=== PATIENT | female | born 1990 | race Caucasian/White ===

== ENCOUNTER 2020-12-12 16:40 | Emergency (ER) | payer OTHER ==
[~2020-12-12] VITALS: Ht 157.5 cm; Wt 52.3 kg
[2020-12-12 18:06] LABS: BASO # 0.02 (0.02-0.10); EOS # 0.09 (0.04-0.40); EOS % 1.7 % (1.0-5.0); HEMATOCRIT 38.6 % (37.0-47.0); HEMOGLOBIN 12.2 g/dL (12.5-16.0); LYMPH# 2.09 (1.50-4.00); MEAN CELL VOLUME 85 fl (78-100); MEAN CORPUSCULAR HEMOGLOBIN 27 pg (27-31); MEAN CORPUSCULAR HGB CONC 32 g/dL (33-37); MEAN PLATELET VOLUME 9.4 fl (7.4-10.4); NEU # 2.83 (1.40-6.50); PLATELET COUNT 290 K/mm3 (130-400); RED BLOOD COUNT 4.54 M/mm3 (4.10-5.30); RED CELL DISTRIBUTION WIDTH 15.8 % (11.5-14.5); WHITE BLOOD COUNT 5.3 K/mm3 (4.8-10.8)
[2020-12-12 18:09] LABS: ALBUMIN 4.1 g/dL (3.5-5.0)
[2020-12-12 18:10] LABS: POTASSIUM 3.7 mmol/L (3.5-5.1); SODIUM 139 mmol/L (136-145)
[2020-12-12 18:11] LABS: CALCIUM 9.5 mg/dL (8.3-10.5)
[2020-12-12 18:12] LABS: GLUCOSE 90 mg/dL (65-105); TOTAL PROTEIN 7.5 g/dL (6.4-8.3)
[2020-12-12 18:13] LABS: CARBON DIOXIDE 23 mmol/L (22-29)
[2020-12-12 18:14] LABS: TOTAL BILIRUBIN 0.5 mg/dL (0.2-1.2)
[2020-12-12 18:17] LABS: AST-SGOT 21 U/L (5-34)
[2020-12-12 18:19] LABS: ALT/SGPT 17 U/L (0-55); LIPASE 25 U/L (8-78)
[2020-12-12 18:46] LABS: TROPONIN-I < 0.03 ng/mL (<0.030)
[2020-12-12 20:35] VITALS: BP 114/81
[2020-12-12] MEDS ORDERED: KLONOPIN 0.5MG0.5 MG PO (20:47)
[2020-12-12] MEDS ORDERED: ADDERALL XR20 MG PO (20:47)
[2020-12-12] MEDS ORDERED: EFFEXOR XR150 M1 PO (20:48)
[2020-12-12] MEDS ORDERED: BUTALB-ASPIRIN1 EACH PO (20:48)
== END 2020-12-12 20:35 | disposition home or self-care (01) ==
LOC: ED 16:40
PROVIDERS: Family Medicine
DX: R14.0 Abdominal distension (gaseous) (principal); R07.89 Other chest pain; Z20.822 Contact with and (suspected) exposure to COVID-19

== ENCOUNTER → 2020-12-16 | Outpatient (CLI) | payer OTHER ==
[~2020-12-16] MED LIST: ADDERALL XR20 MG PO; BUTALB-ASPIRIN1 EACH PO; EFFEXOR XR150 M1 PO; KLONOPIN 0.5MG0.5 MG PO
== END ==
LOC: RAD 07:52
DX: R10.9 Unspecified abdominal pain (principal)

== ENCOUNTER 2021-04-12 10:43 | Emergency (ER) | payer OTHER ==
[~2021-04-12] VITALS: Ht 157.5 cm; Wt 52.3 kg
[2021-04-12] MEDS ORDERED: TIZANIDINE HYDRO2 M1 PO (16:01)
[2021-04-12] MEDS ORDERED: NORCO 325 MG-51 TA1 PO (16:01)
[2021-04-12 16:36] VITALS: BP 100/68
== END 2021-04-12 16:38 | disposition home or self-care (01) ==
LOC: ED 10:43
DX: M54.2 Cervicalgia (principal); M79.601 Pain in right arm; F41.9 Anxiety disorder, unspecified; F32.A Depression, unspecified; F90.9 Attention-deficit hyperactivity disorder, unspecified type; Z79.899 Other long term (current) drug therapy
CPT/HCPCS: J2360

== ENCOUNTER 2023-11-15 12:54 | Emergency (ER) | payer OTHER ==
[~2023-11-15] VITALS: Ht 157.5 cm; Wt 50.0 kg
[~2023-11-15 12:54] MED LIST changes: +NORCO 325 MG-51 TA1 PO; +TIZANIDINE HYDRO2 M1 PO
[2023-11-15 13:28] VITALS: BP 115/78
== END 2023-11-15 13:28 | disposition home or self-care (01) ==
LOC: ED 12:54
DX: F32.A Depression, unspecified (principal); Z79.899 Other long term (current) drug therapy

== ENCOUNTER 2024-06-21 09:22 | Emergency (ER) | payer OTHER ==
[~2024-06-21] VITALS: Ht 157.5 cm; Wt 49.3 kg
[2024-06-21] MEDS ORDERED: LEXAPRO 10MG10 MG PO (09:35)
[2024-06-21 11:08] VITALS: BP 139/95
== END 2024-06-21 11:12 | disposition home or self-care (01) ==
LOC: ED 09:22
DX: M54.2 Cervicalgia (principal); M54.6 Pain in thoracic spine; V47.5XXA Car driver injured in collision with fixed or stationary object in traffic accident, initial encounter; Y92.410 Unspecified street and highway as the place of occurrence of the external cause